=== PATIENT | male | born 1935 | race Caucasian/White ===

== ENCOUNTER 2020-02-08 14:56 | Emergency (ER) | payer MEDICARE, SELFPAY ==
[2020-02-08 15:08] VITALS: BP 114/68; PULSE 88; RESP 16; TEMP 36.8; O2SAT 97
--- NOTE | 2020-02-08 15:12 | ED.WOUNDLAC ---
HPI - Wound/Laceration General Chief Complaint: Wound/Laceration Stated Complaint: Groin bleeding Time Seen by Provider: 02/08/20 15:40 Source: patient and RN notes reviewed Mode of arrival: ambulatory Limitations: no limitations History of Present Illness HPI narrative: 84-year-old male presents with concern for a scab on his scrotum that began to bleed today. He reports he was unable to get it to stop bleeding. He denies any syncope, lightheadedness. Denies any similar occurrence in the past. Reports he takes aspirin daily. He denies any scrotal pain, swelling, penile discharge. Reports he was able to stop the bleeding prior to arrival. Location: genitals Related Data Home Medications Medication Instructions Recorded Confirmed carvedilol 02/08/20 dutasteride mg PO 02/08/20 felodipine mg PO 02/08/20 gabapentin 02/08/20 lisinopril-hydrochlorothiazide tablet 02/08/20 pravastatin 02/08/20 tamsulosin mg PO 02/08/20 Allergies Allergy/AdvReac Type Severity Reaction Status Date / Time No Known Allergies Allergy Verified 02/08/20 14:59 Review of Systems Review of Systems: Narrative: CONSTITUTIONAL: Denies malaise, chills, sweats, or fever. CARDIOVASCULAR: Denies chest pain, palpitations, or edema. RESPIRATORY: Denies dyspnea. GENITOURINARY: Denies scrotal pain, swelling, redness dysuria or hematuria. SKIN: Reports scab on scrotum that bled NEUROLOGIC: Denies numbness, weakness, or headache. All systems reviewed & are unremarkable except as noted in HPI and below PMFSH Comments At time of signature, agree with nursing past medical, surgical, social and family history. There is no relevant family history pertinent to the presenting complaint Exam Narrative: Exam Narrative: GENERAL: Well-appearing, well-nourished, and in no acute distress. HEAD: Normocephalic, atraumatic. EYES: PERRLA, conjunctivae clear ENT: Mucous membranes moist. NECK: Supple. CHEST: No respiratory distress. Speaks in full sentences. HEART: Regular rate and rhythm. SKIN: Warm, dry, no rash. Pinpoint opening on scrotum. NEURO: Alert and oriented x3. PSYCH: Normal mood and affect Course Course Emergency Course: Dried blood cleaned from scrotum which was not bleeding. Bleeding resumed to the pinpoint opening on the scrotum. Silver nitrate applied, hemostasis achieved. Patient is aware of diagnosis, understands and agrees to treatment plan. Anticipatory guidance given. Patient agrees to follow-up as directed and is aware of reasons to seek care at the emergency department. Portions of this record may have been created with voice recognition software Vital Signs Vital signs: Vital Signs Temperature 98.3 F 02/08/20 15:08 Pulse Rate 88 02/08/20 15:08 Respiratory Rate 16 02/08/20 15:08 Blood Pressure 114/68 02/08/20 15:08 Pulse Oximetry 97 02/08/20 15:08 Temperature 98.3 F 02/08/20 15:08 Pulse Rate 88 02/08/20 15:08 Respiratory Rate 16 02/08/20 15:08 Blood Pressure 114/68 02/08/20 15:08 Pulse Oximetry 97 02/08/20 15:08 Reviewed. MDM - Wound/Laceration MDM Narrative Medical decision making narrative: Exam findings show no acute concerns or changes; patient is non-toxic appearing and is in no distress. Patient is appropriate for outpatient treatment and follow-up. Differential Diagnosis Differential diagnosis: Likely laceration, abrasion and avulsion of skin Critical Care Time Critical Care Time Critical Care Time: No Discharge Plan Discharge Clinical Impression: Bleeding Patient Disposition: Home, Self-Care Condition: Stable Instructions: Potassium Nitrate/Silver Nitrate (On the skin) Additional Instructions: Please avoid touching, picking at the site on your scrotum that was bleeding. You may shower, let soap and water run over it. If you experience bleeding again, apply firm pressure for at least 15 minutes. Please see your primary care provider or return if you
== END 2020-02-08 16:00 | disposition home or self-care (01) ==
PROVIDERS: Emergency Provider Nurse Practitioner; PCP Internal Medicine
DX: S31.30XA Unspecified open wound of scrotum and testes, initial encounter (principal); X58.XXXA Exposure to other specified factors, initial encounter; E78.00 Pure hypercholesterolemia, unspecified; I10 Essential (primary) hypertension; N40.0 Benign prostatic hyperplasia without lower urinary tract symptoms
CPT/HCPCS: 99202; G0463

== ENCOUNTER → 2020-06-21 10:04 | Outpatient (CLI) | payer MEDICARE, SELFPAY ==
--- NOTE | ~2020-06-21 | US_ITS ---
US scrotum doppler INDICATION: Left testicular mass and swelling TECHNIQUE: Testicular sonogram utilizing grayscale and color Doppler FINDINGS: The testes are normal in size and appearance. No focal lesions are seen. The right testes measures 4.6 x 2.3 x 3.2 cm centimeters, and the left testis measures 3.6 x 2.7 x 2.9 cm cm. There is normal vascular flow to both testes. The right and left epididymides appear normal. There is a right varicocele. There is a large left hydrocele. IMPRESSION: 1. Large left hydrocele. 2: Right varicocele. Reviewed, dictated and finalized at location A.
== END ==
PROVIDERS: PCP Internal Medicine; Visit Provider Internal Medicine
DX: N43.3 Hydrocele, unspecified (principal); I86.1 Scrotal varices
CPT/HCPCS: 76870; 93976

== ENCOUNTER 2021-02-07 00:03 | Emergency (ER) | payer MEDICARE, SELFPAY ==
--- NOTE | ~2021-02-07 | CT_ITS ---
EXAMINATION: CT brain wo con DATE: 02/07/2021 01:28 INDICATION: Tremors TECHNIQUE: Computed tomography (CT) of the head was performed without intravenous contrast. Sagittal and coronal reconstructions were performed. The mA was adjusted according to patient size. Iterative reconstruction technique was employed. The dose-length product was 605.33 mGy-cm. COMPARISON: None FINDINGS: No acute intracranial hemorrhage, acute infarction or abnormal extra axial fluid collection. There is mild scattered white matter hypoattenuation consistent with chronic small vessel ischemic disease. S ymmetric prominence of the sulci consistent with mild age-appropriate diffuse cerebral volume loss. V entricles are normal and symmetric. No mass/mass effect. Changes of bilateral intraocular lens replac ement. The orbits and mastoid air cells are normal. Mild mucosal thickening the bilateral maxillary s inuses. Intracranial calcified cerebral atherosclerosis is noted. IMPRESSION: 1. No acute intracranial process. 2. Age-related changes including mild diffuse volume loss and mild scattered white matter hypoattenua tion consistent with chronic small vessel ischemic disease. Reviewed, dictated and finalized at location A. IMPRESSION: 1. No acute intracranial process. 2. Age-related changes including mild diffuse volume loss and mild scattered wh ite matter hypoattenuation consistent with chronic small vessel ischemic diseas e.
[2021-02-07 00:06] VITALS: BP 152/53; PULSE 95; RESP 18; TEMP 37.5; O2SAT 98
--- NOTE | 2021-02-07 00:51 | PC.NURSE ---
Pt presents to ED with complaints of sudden onset of tremors this evening at unknown time. Per daughter who is present at bedside, pt had his second covid injection today. Pt presents to with tremors to bilateral upper extremities. Pt denies nvd, chest pain and sob. Pt noted to be alert and oriented x4. Call button and personal items within reach. Pt advised to press call button for assistance.
--- NOTE | 2021-02-07 00:54 | ED.GENADULT ---
HPI - General Adult General Chief complaint: Unspecified Stated complaint: Shaking Time Seen by Provider: 02/07/21 00:47 Source: RN notes reviewed History of Present Illness HPI narrative: Patient presents to emergency department from home for tremors. Patient states this evening evening while he was watching TV began to notice tremors in his bilateral upper extremities he states his arms were shaking and he felt like he cannot control them and stopped him from shaking he states he also felt this mildly in his bilateral lower legs. He states that he did receive a second Covid vaccine today he denies any fevers or chills chest pain shortness of breath abdominal pain nausea or vomiting. He denies any numbness or tingling in the extremities or unilateral weakness Related Data Home Medications Medication Instructions Recorded Confirmed carvedilol 02/08/20 dutasteride mg PO 02/08/20 felodipine mg PO 02/08/20 gabapentin 02/08/20 lisinopril-hydrochlorothiazide tablet 02/08/20 pravastatin 02/08/20 tamsulosin mg PO 02/08/20 Allergies Allergy/AdvReac Type Severity Reaction Status Date / Time Penicillins Allergy Unknown Verified 02/07/21 00:09 Review of Systems Review of Systems: Narrative: Gen.: Denies fevers or chills ENT: Denies congestion Respiratory: Denies shortness of breath or cough CV: Denies chest pain or palpitations GI: Denies abdominal pain nausea, emesis or diarrhea Musculoskeletal: Denies back pain or muscle pain Neuro: See HPI Skin: Denies rash Except as documented, all other systems reviewed and negative [facility] Past Medical History Medical History (Updated 02/07/21 @ 02:52 by Milan Iraheta DO) Patient denies significant medical history Social History Social History (Updated 02/07/21 @ 00:55 by Milan Iraheta DO) Smoking status: Never smoker Exam Narrative: Exam Narrative: APPEARANCE: No acute distress, nontoxic, resting in bed EYES: EOMI, PERRL HEENT: Normocephalic, atraumatic, OMM RESPIRATORY: No respiratory distress Clear to auscultation bilaterally with no rhonchi wheezing or rales. CARDIOVASCULAR: Regular rate and rhythm without murmurs rubs or gallops. ABDOMINAL: Soft, nontender, nondistended, no rebound or guarding MUSCULOSKELETAl: Moves all extremities. No clubbing, cyanosis or edema. NEURO: Awake and alert4 , speech normal, no facial droop, muscle strength 5 out of 5 bilateral upper and lower extremities, tremors in the bilateral upper extremities SKIN:: Warm, dry. No rashes lesions or abrasions PSYCHIATRIC: Normal affect/mood, Course Course Emergency Course: Patient symptoms are improved following Tylenol Discussed with patient results of workup and diagnosis. Discussed need for follow-up with primary care, proper use of medication, and reasons to return to the emergency department. Patient understands and agrees to current treatment plan Vital Signs Vital signs: Vital Signs Temperature 99.5 F 02/07/21 00:06 Pulse Rate 95 02/07/21 00:06 Respiratory Rate 18 02/07/21 00:06 Blood Pressure 152/53 H 02/07/21 00:06 Pulse Oximetry 98 02/07/21 00:06 Temperature 100.2 F H 02/07/21 02:15 Pulse Rate 95 02/07/21 00:06 Respiratory Rate 18 02/07/21 00:06 Blood Pressure 152/53 H 02/07/21 00:06 Pulse Oximetry 98 02/07/21 00:06 Medical Decision Making [facility] Narrative Medical decision making narrative: Patient with tremors in bilateral arms and legs earlier second Covid shot today suspect that patient is likely getting chills myalgias from Covid shot Doe Tylenol lab work is within normal limits this 30 feel patient is stable for discharge CT scan head shows no acute process discussed with family likely secondary to shot however symptoms continue need to follow-up with PCP for further work-up Vital Signs Vital Signs: Vital Signs Temperature 99.5 F 02/07/21 00:06 Pulse Rate 95 02/07/21 00:06 Respiratory Rate 18 02/07/21 00:06 Blood
--- NOTE | 2021-02-07 01:03 | ECG_ITS ---
Measurements Intervals [place] Rate: 86 P: 16 NM: 234 QRS: -23 QRSD: 152 T: 105 QT: 393 QTc: 472 Interpretive Statements SINUS RHYTHM WITH FIRST DEGREE AV BLOCK LEFT BUNDLE BRANCH BLOCK BASELINE ARTIFACT- I, II, III, AVR ABNORMAL ECG Electronically Signed On 02-07-2021 7:39:08 CDT by Kamran Collado D.O.
[2021-02-07 01:24] LABS: Basophils Percent Auto 0.2 % (0.2-1.2); Eosinophils Absolute Auto 0.1 K/mm3 (0-0.3); Eosinophils Percent Auto 1.4 % (0-4.4); Hemoglobin 13.2 g/dL (14.0-18.0); Immature Granulocyte Absolute 0.01 K/mm3 (0.00-0.031); Immature Granulocyte Percent A 0.2 % (0-0.5); Lymphocytes Absolute Auto 0.67 K/mm3 (0.9-3.2); Lymphocytes Percent Auto 10.3 % (18.3-44.2); Mean Corpuscular Hemoglobin 30.6 pg (26-34); Mean Corpuscular Volume 92.6 fl (80-100); Mean Platelet Volume 9.5 fl (7.4-10.4); Monocytes Absolute Auto 0.4 K/mm3 (0.1-0.6); Monocytes Percent Auto 5.4 % (2.6-8.5); Neutrophils Absolute Auto 5.4 K/mm3 (1.3-6.7); Neutrophils Percent Auto 82.5 % (45.5-73.1); Platelet Count Result 135 k/mm3 (150-375); Red Blood Count 4.32 M/mm3 (4.6-6.20); Red Cell Distribution Width 15.8 % (11.5-14.5); White Blood Count 6.5 K/mm3 (4.5-10.0)
[2021-02-07] MEDS: ACETAMINOPHEN 500 MG TABLET 1000 MG PO (01:28)
[2021-02-07 01:38] LABS: Alanine Aminotransferase 17 U/L (4-50); Albumin Level 4.1 g/dL (3.5-5.1); Alkaline Phosphatase 69 U/L (38-126); Anion Gap 6 mmol/L (8-16); Aspartate Amino Transferase 22 U/L (17-59); Bilirubin,Total 0.5 mg/dL (0.2-1.3); Blood Urea Nitrogen 22 mg/dL (9-20); Calcium 9.1 mg/dL (8.4-10.2); Carbon Dioxide 29 mmol/L (22-30); Chloride 101 mmol/L (98-107); Estimated CRCL calculation 61 ml/min; Estimated Glomerular Filt Rate > 60; Glucose 113 mg/dL (75-110); Potassium 3.7 mmol/L (3.4-5.0); Sodium 136 mmol/L (137-145)
[2021-02-07 02:15] VITALS: TEMP 37.9
[2021-02-07 04:04] VITALS: BP 129/66; PULSE 87; RESP 24; TEMP 37.2; O2SAT 96
[2021-02-07 04:05] VITALS: BP 129/66; PULSE 87; RESP 24; TEMP 37.2; O2SAT 96
[2021-02-07 04:21] VITALS: BP 129/66; PULSE 87; RESP 24; TEMP 37.2; O2SAT 96
== END 2021-02-07 04:25 | disposition home or self-care (01) ==
PROVIDERS: Emergency Provider Emergency Medicine; PCP Internal Medicine
DX: G25.1 Drug-induced tremor (principal); T50.B95A Adverse effect of other viral vaccines, initial encounter; I44.0 Atrioventricular block, first degree; I44.7 Left bundle-branch block, unspecified
CPT/HCPCS: 36415; 70450; 80053; 85025; 93005; 99284; A9270

== ENCOUNTER → 2021-08-18 13:46 | Outpatient (CLI) | payer MEDICARE, SELFPAY ==
--- NOTE | ~2021-08-18 | US_ITS ---
EXAMINATION: US pelvic limited INDICATION: Benign prostatic hyperplasia without lower urinary tract symptoms TECHNIQUE: Pre and post void ultrasound images of the urinary bladder are obtained. COMPARISON: None available FINDINGS: No bladder wall thickening is identified. Prevoid bladder volume is 97.1 cc. Postvoid bladd er volume is 31.3 cc. IMPRESSION: 1. Pre and post void bladder volumes as above. Reviewed, dictated and finalized at location A.
== END ==
PROVIDERS: PCP Internal Medicine; Visit Provider Internal Medicine
DX: N40.0 Benign prostatic hyperplasia without lower urinary tract symptoms (principal)
CPT/HCPCS: 76857

== ENCOUNTER 2021-09-20 11:39 | Emergency (ER) | payer MEDICARE, SELFPAY ==
[2021-09-20 11:54] VITALS: BP 140/71; PULSE 72; RESP 18; TEMP 36.3; O2SAT 100
--- NOTE | 2021-09-20 12:02 | ED.SKABFB ---
HPI - Skin/Abscess/Foreign Bdy General Chief complaint: Skin/Abscess/Foreign Body Stated complaint: Rash,Swollen Feet Time Seen by Provider: 09/20/21 11:58 Source: patient, family (Daughter) and RN notes reviewed Mode of arrival: ambulatory Limitations: no limitations History of Present Illness HPI narrative: 86-year-old male with a significant history of some type of dermatitis, congestive heart failure, hypertension, GERD and high cholesterol presents to the [facility] with complaints of increased itchiness to a chronic rash he has had for several months. Patient states that the rash started sometime in the summer, was seen at Dr. [facility]on dermatology clinic July, was given a steroid shot and prescribed a cream. Went back 2 weeks after given another steroid shot and prescribed a different cream. Daughter states she believes the steroid shot helped with the itching, reports that they did a skin scraping and it came back inconclusive. Patient describes the rash is very itchy. Also is concerned that his bilateral lower legs are still swollen, have been swollen for 2 to 3 months. States he does have a history of congestive heart failure and does take his medication daily. Patient is denying fevers, chest pain or shortness of breath. No abdominal pain, nausea, vomiting. Patient reports that he is most concerned and would like the itching to stop. Does not have another appointment with primary or with dermatology until October. States he cannot wait to stop the itching. Daughter is requesting a shot of steroids to try to help. Patient is not diabetic. MD complaint: rash Related Data Home Medications Medication Instructions Recorded Confirmed carvedilol 02/08/20 dutasteride mg PO 02/08/20 felodipine mg PO 02/08/20 gabapentin 02/08/20 lisinopril-hydrochlorothiazide tablet 02/08/20 pravastatin 02/08/20 tamsulosin mg PO 02/08/20 amlodipine 09/20/21 aspirin 81 mg PO DAILY 09/20/21 09/20/21 finasteride mg 09/20/21 Allergies Allergy/AdvReac Type Severity Reaction Status Date / Time Penicillins Allergy Unknown Verified 09/20/21 11:51 Review of Systems Review of Systems: All systems reviewed & are unremarkable except as noted in HPI and below Constitutional: Constitutional: Reports no additional constitutional complaints, Denies chills and Denies fever(s) Eyes: Eyes: Reports no additional eye complaints ENT: Reports system reviewed and no additional complaints, except as documented Cardiovascular: Cardiovascular: Reports no additional cardiovascular complaints and Denies chest pain Respiratory: Respiratory: Reports no additional respiratory complaints, Denies cough, Denies dyspnea and Denies wheezing Gastrointestinal: Gastrointestinal: Reports no additional gastrointestinal complaints, Denies abdominal pain, Denies nausea and Denies vomiting Genitourinary: Genitourinary: Reports no additional male genitourinary complaints Musculoskeletal: Musculoskeletal: Reports no additional musculoskeletal complaints Integumentary/Breasts: Skin/Breast: Reports as per HPI and Reports rash Neurologic: Reports system reviewed and no additional complaints, except as documented Psychiatric: Psychiatric: Reports no additional psychiatric complaints Allergic/Immunologic: Allergic/Immunologic: Reports no additional allergic/immunologic complaints [facility] Past Medical History Medical History (Updated 09/20/21 @ 18:31 by Marianela Minor) Congestive heart failure H/O gastroesophageal reflux (GERD) High cholesterol Hypertension Social History Social History Smoking status: Never smoker Comments At the time of my signature, I reviewed and agree with the nursing past medical, surgical, social, and family history. There is no relevant family history pertinent to the patient complaint. Exam Const: General: healthy appearing, no acute distress and alert Nutritional A
== END 2021-09-20 12:40 | disposition home or self-care (01) ==
PROVIDERS: Emergency Provider Nurse Practitioner
DX: L50.9 Urticaria, unspecified (principal); L30.9 Dermatitis, unspecified; I11.0 Hypertensive heart disease with heart failure; I50.9 Heart failure, unspecified; K21.9 Gastro-esophageal reflux disease without esophagitis; E78.00 Pure hypercholesterolemia, unspecified
CPT/HCPCS: 96372; 99213; G0463; J1100

== ENCOUNTER 2022-01-10 17:15 | Emergency (ER) | payer MEDICARE, SELFPAY ==
--- NOTE | 2022-01-10 17:17 | ED.SKABFB ---
HPI - Skin/Abscess/Foreign Bdy General Chief complaint: Skin/Abscess/Foreign Body Stated complaint: Rash Time Seen by Provider: 01/10/22 17:17 Source: patient and RN notes reviewed History of Present Illness HPI narrative: Patient is an 86-year-old male who presents the urgent care with his daughter with complaints of a rash to bilateral lower legs, bilateral hips and upper back. Patient states is been off and on for approximately 1 year and exacerbated just over the last couple weeks. 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 Daughter states that he needs a steroid shot . No other acute complaints. No acute distress noted. Patient aware of the plan of care. Some parts of this dictation were generated by voice recognition software and may contain typographical and/or grammatical inaccuracies. Related Data Home Medications Medication Instructions Recorded Confirmed carvedilol 3.125 mg PO DAILY 02/08/20 01/10/22 dutasteride 0.5 mg PO DAILY 02/08/20 01/10/22 felodipine 5 mg PO DAILY 02/08/20 01/10/22 gabapentin 100 mg PO DAILY 02/08/20 01/10/22 lisinopril-hydrochlorothiazide 1 tablet PO DAILY 02/08/20 01/10/22 pravastatin 10 mg PO DAILY 02/08/20 01/10/22 tamsulosin 0.4 mg PO DAILY 02/08/20 01/10/22 amlodipine 2.5 mg PO DAILY 09/20/21 01/10/22 aspirin 81 mg PO DAILY 09/20/21 01/10/22 finasteride 5 mg PO DAILY 09/20/21 01/10/22 duloxetine 30 mg PO DAILY 01/10/22 01/10/22 furosemide 20 mg PO DAILY 01/10/22 01/10/22 Allergies Allergy/AdvReac Type Severity Reaction Status Date / Time Penicillins Allergy Unknown Verified 01/10/22 17:25 Review of Systems Review of Systems: CONSTITUTIONAL: Denies fever, chills, or sweats. EYES: Denies visual changes, redness, or discharge. ENT: Denies rhinorrhea, congestion, sore throat, or otalgia. CARDIOVASCULAR: Denies chest pain, palpitations, or edema. RESPIRATORY: Denies cough or dyspnea. GASTROINTESTINAL: Denies abdominal pain, nausea, vomiting, or diarrhea. GENITOURINARY: Denies dysuria or hematuria. SKIN: Reports of itching plain rash to bilateral lower legs, bilateral hips, and upper back MUSCULOSKELETAL: Denies back pain, joint pain, or myalgia. NEUROLOGIC: Denies headache, numbness, or weakness. All other systems reviewed are negative, except as documented in HPI. [facility] Past Medical History Medical History (Updated 01/10/22 @ 17:51 by TOM Cespedes) Congestive heart failure H/O gastroesophageal reflux (GERD) High cholesterol Hypertension Social History Social History Smoking status: Never smoker Comments At the time of my signature, I reviewed and agree with the nursing past medical, surgical, social, and family history. There is no relevant family history pertinent to the patient complaint. Exam Narrative: GENERAL: This is a well-nourished, well-developed patient, in no apparent distress. HEAD: normocephalic, atraumatic. EYES: PERRL. Sclera clear/white. Vision is grossly intact. EARS: External ears normal NOSE: External nose normal with no obvious nasal discharge, nares without redness, no rhinorrhea. THROAT: Mucous membranes moist, posterior pharynx clear. NECK: Neck supple CARDIOVASCULAR: Regular rate and rhythm RESPIRATORY: Clear to auscultation. Breath sounds equal bilaterally. No wheezes, rales, or rhonchi. SKIN: Dry erythemic pruritic dermatitis noted bilateral lower extremities, bilateral hips, and upper back consistent with either psoriasis or eczema NEURO: awake, alert, and oriented to person, place and time. There were no obvious focal neurologic abnormalities. EXTREMITIES: No clubbing, cyanosis, or edema. Course Course Level of Care: Express Care Visit Vital Signs Vital signs: Vital Signs Temperature 97.6 F 01/10/22 17: Pulse Rate 87 01/10/22 17:26 Respiratory Rate 18 01/10/22 17:26 Blood Pressure 115/62
[2022-01-10 17:26] VITALS: BP 115/62; PULSE 87; RESP 18; TEMP 36.4; O2SAT 98
[2022-01-10 17:28] VITALS: BP 115/62; PULSE 87; RESP 18; TEMP 36.4; O2SAT 98
== END 2022-01-10 17:56 | disposition home or self-care (01) ==
PROVIDERS: Emergency Provider Nurse Practitioner Family; PCP Internal Medicine
DX: L30.9 Dermatitis, unspecified (principal); K21.9 Gastro-esophageal reflux disease without esophagitis; E78.00 Pure hypercholesterolemia, unspecified; I11.0 Hypertensive heart disease with heart failure; I50.9 Heart failure, unspecified
CPT/HCPCS: 99213; G0463

== ENCOUNTER → 2022-12-20 12:19 | Outpatient (CLI) | payer MEDICARE, SELFPAY ==
--- NOTE | ~2022-12-20 | CT_ITS ---
EXAMINATION: CT chest abdomen pelvis wo con DATE: 12/20/2022 12:50 INDICATION: Unintentional weight loss. TECHNIQUE: Computed tomography (CT) of the chest, abdomen, and pelvis was performed without intraveno us contrast. Automated exposure control and iterative reconstruction technique were employed. The dos e-length product was 914.46 mGy-cm. COMPARISON: None FINDINGS: CHEST CT: There is mild atelectasis bilaterally. There is a 5 mm nodule in lingula. There is a 3 mm nodule in r ight upper lobe. There is a 5 mm nodule at minor fissure. These findings are likely benign. No pleura l effusion. The heart size is normal. There are coronary artery calcifications. No pericardial effusi on. 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 There is a large right glenohumeral felicia int effusion with loose bodies. There is moderate thoracic spondylosis. ABDOMEN/PELVIS CT: The liver, gallbladder, spleen, pancreas, and adrenal glands are normal. There are cysts in the kidne ys including peripelvic cysts measuring up to 3.3 cm on the left. There is a 5 mm parenchymal calcifi cation in right kidney with focal parenchymal volume loss. There is an umbilical hernia containing no nobstructed small bowel. There is diverticulosis of the colon without evidence of diverticulitis. The appendix is normal. There is a small focus of fat necrosis adjacent to ascending colon. There are no pathologically enlarged lymph nodes. There is no free intraperitoneal fluid. There is severe lumbar spondylosis. IMPRESSION: 1. Umbilical hernia containing nonobstructed small bowel. Reviewed, dictated and finalized at location A. [facility]TER
== END ==
PROVIDERS: PCP Internal Medicine; Visit Provider Internal Medicine
DX: R63.4 Abnormal weight loss (principal); K42.9 Umbilical hernia without obstruction or gangrene
CPT/HCPCS: 71250; 74176

== ENCOUNTER 2023-09-14 18:34 | Emergency (ER) | payer MEDICARE, SELFPAY ==
--- NOTE | 2023-09-14 18:37 | ED.EYEPROB ---
HPI - Eye Problem General Chief complaint: Eye Problems Stated complaint: Left Eye Irritation Time Seen by Provider: 09/14/23 18:37 Source: patient Mode of arrival: ambulatory Limitations: no limitations History of Present Illness HPI Narrative: Patient 88-year-old male that presents with left eye irritation and discharge. Reports symptoms started a week ago and was seen at PCP and was given eyedrops. Patient has been using them sporadically due to not understanding it was antibiotic drops for a bacterial infection. Reports his eye has discharge and feels like there is sand in it along with being itchy. Denies any vision changes Related Data Home Medications Medication Instructions Recorded Confirmed carvedilol 3.125 mg tablet 3.125 mg PO DAILY 02/08/20 09/14/23 dutasteride 0.5 mg capsule 0.5 mg PO DAILY 02/08/20 09/14/23 felodipine 5 mg tablet,extended 5 mg PO DAILY 02/08/20 09/14/23 release 24 hr gabapentin 100 mg capsule 100 mg PO DAILY 02/08/20 09/14/23 lisinopril 10 1 tablet PO DAILY 02/08/20 09/14/23 mg-hydrochlorothiazide 12.5 mg tablet pravastatin 10 mg tablet 10 mg PO DAILY 02/08/20 09/14/23 tamsulosin 0.4 mg capsule 0.4 mg PO DAILY 02/08/20 09/14/23 amlodipine 2.5 mg tablet 2.5 mg PO DAILY 09/20/21 09/14/23 aspirin 81 mg tablet 81 mg PO DAILY 09/20/21 09/14/23 finasteride 5 mg tablet 5 mg PO DAILY 09/20/21 09/14/23 duloxetine 30 mg capsule,delayed 30 mg PO DAILY 01/10/22 09/14/23 release furosemide 20 mg tablet 20 mg PO DAILY 01/10/22 09/14/23 ergocalciferol (vitamin D2) 1,250 1,250 mcg PO MONTHLY 09/14/23 09/14/23 mcg (50,000 unit) capsule Allergies Allergy/AdvReac Type Severity Reaction Status Date / Time Penicillins Allergy Unknown Verified 09/14/23 18:42 Review of Systems Review of Systems: All systems reviewed & are unremarkable except as noted in HPI and below Constitutional: Constitutional: Denies body ache(s), Denies fever(s), Denies headache(s), Denies malaise and Denies weakness Eyes: Eyes: Denies blurry vision, Reports eye discharge, Reports irritation, Reports itchy eyes, Denies loss of vision and Reports eye pain ENT: Denies otalgia, Denies headache(s), Denies nasal discharge, Denies sinus pain and Denies sore throat Cardiovascular: Cardiovascular: Denies chest pain, Denies irregular heart rhythm and Denies dyspnea Respiratory: Respiratory: Denies dyspnea Gastrointestinal: Gastrointestinal: Denies abdominal pain, Denies diarrhea, Denies nausea and Denies vomiting Musculoskeletal: Musculoskeletal: Denies back pain, Denies myalgias and Denies arthralgias Integumentary/Breasts: Skin/Breast: Denies pruritus and Denies rash Neurologic: Denies headache(s), Denies loss of vision and Denies weakness Psychiatric: Psychiatric: Reports no additional psychiatric complaints Allergic/Immunologic: Allergic/Immunologic: Reports itchy eyes PMFSH Past Medical History Medical History Congestive heart failure H/O gastroesophageal reflux (GERD) High cholesterol Hypertension Social History Social History Smoking status: Never smoker Comments At time of signature, agree with nursing past medical, surgical, social and family history. There is no relevant family history pertinent to the presenting complaint. Exam Const: General: cooperative, healthy appearing, comfortable, no acute distress and well nourished Nutritional Appearance: well nourished Orientation/consciousness: patient oriented x3 Limitations: no limitations HENMT: Head: normal to inspection, normocephalic and atraumatic Ears: external ears normal Face/Nose/Sinus: Normal external nose present, normal facial exam and face symmetric Face and sinus: normal facial exam and face symmetric Mouth: Yes lip normal Eyes: General: appearance normal, both eyes and all related structures Visual Fleming: normal visual
[2023-09-14 18:44] VITALS: BP 119/79; PULSE 70; RESP 16; TEMP 37.1; O2SAT 98
[2023-09-14 18:48] VITALS: BP 119/79; PULSE 70; RESP 16; TEMP 37.1; O2SAT 98
== END 2023-09-14 19:14 | disposition home or self-care (01) ==
PROVIDERS: Emergency Provider Nurse Practitioner Family; PCP Internal Medicine
DX: H10.9 Unspecified conjunctivitis (principal); I11.0 Hypertensive heart disease with heart failure; I50.9 Heart failure, unspecified; K21.9 Gastro-esophageal reflux disease without esophagitis; E78.00 Pure hypercholesterolemia, unspecified; Z79.82 Long term (current) use of aspirin
CPT/HCPCS: 99213; G0463

== ENCOUNTER 2023-09-17 12:16 | Emergency (ER) | payer MEDICARE, SELFPAY ==
[2023-09-17] VITALS (10 sets, daily range): BP systolic 97–120; BP diastolic 51–72; PULSE 60–78; RESP 14–19; TEMP 36.5; O2SAT 97–100
--- NOTE | ~2023-09-17 | CT_ITS ---
EXAMINATION: CT brain wo con DATE: 09/17/2023 17:10 INDICATION: confusion, delusions . TECHNIQUE: Computed tomography (CT) of the head was performed without intravenous contrast. The mA wa s adjusted according to patient size. Iterative reconstruction technique was employed. The dose-lengt h product was 529.67 mGy-cm. COMPARISON: 02/07/2021. FINDINGS: No acute intracranial hemorrhage or extra-axial fluid collection. No hydrocephalus, mass, or herniation. No acute ischemic infarct. Unremarkable dural venous sinus attenuation. No acute osseous abnormality. The aerated spaces are clear. Mild atrophy and chronic white matter change. Atherosclerotic intracranial calcification. Bilateral l ens replacements. IMPRESSION: No acute intracranial process. Reviewed, dictated and finalized at location K.
--- NOTE | ~2023-09-17 | XR_ITS ---
EXAMINATION: XR chest 2V Exam Date/Time: 09/17/2023 17:10 CDT HISTORY: AMS, crackles r lung; HTN, CHF, non smoker Comparison: CT cap 12/20/2022. RESULT: Lines, tubes, and devices: None. Lungs and pleura: Low volumes with crowding. Senescent change. Stable right hemidiaphragm elevation. Cardiomediastinal silhouette: Stable. Other: No acute osseous or upper abdominal finding. IMPRESSION: No acute cardiopulmonary process. Reviewed, dictated and finalized at location K.
--- NOTE | 2023-09-17 12:25 | ECG_ITS ---
Measurements Intervals [place] Rate: 70 P: 27 [place]: 233 QRS: -53 QRSD: 161 T: 89 QT: 427 QTc: 462 Interpretive Statements SINUS RHYTHM WITH FIRST DEGREE AV BLOCK MARKED LEFT AXIS DEVIATION [QRS AXIS < -30] LEFT BUNDLE BRANCH BLOCK [120+ ms QRS DURATION, 80+ ms Q/S IN V1/V2, 85+ ms R IN I/aVL/V5/V6] ABNORMAL ECG COMPARED TO ECG 02/07/2021 01:15:35 NO SIGNIFICANT CHANGE Electronically Signed On 09-17-2023 14:45:46 CDT by Kb Bonner M.D.
[2023-09-17 12:52] LABS: Basophils Percent Auto 0.3 % (0.2-1.2); Eosinophils Absolute Auto 0.1 K/mm3 (0-0.3); Eosinophils Percent Auto 2.1 % (0-4.4); Hematocrit 41.2 % (42.0-52.0); Hemoglobin 12.9 g/dL (14.0-18.0); Immature Granulocyte Absolute 0.01 K/mm3 (0.00-0.031); Immature Granulocyte Percent A 0.2 % (0-0.5); Lymphocytes Absolute Auto 1.51 K/mm3 (0.9-3.2); Lymphocytes Percent Auto 24.6 % (18.3-44.2); Mean Corpuscular HGB Conc 31.3 g/dl (32-36); Mean Corpuscular Hemoglobin 29.7 pg (26-34); Mean Corpuscular Volume 94.9 fl (80-100); Mean Platelet Volume 9.9 fl (7.4-10.4); Monocytes Absolute Auto 0.6 K/mm3 (0.1-0.6); Monocytes Percent Auto 9.6 % (2.6-8.5); Neutrophils Absolute Auto 3.9 K/mm3 (1.3-6.7); Neutrophils Percent Auto 63.2 % (45.5-73.1); Platelet Count Result 164 k/mm3 (150-375); Red Blood Count 4.34 M/mm3 (4.6-6.20); Red Cell Distribution Width 14.7 % (11.5-14.5); White Blood Count 6.2 K/mm3 (4.5-10.0)
[2023-09-17 13:01] LABS: Alanine Aminotransferase 14 U/L (6-50); Albumin Level 3.8 g/dL (3.5-5.1); Alkaline Phosphatase 72 U/L (38-126); Anion Gap 5 mmol/L (8-16); Aspartate Amino Transferase 19 U/L (17-59); Bilirubin,Total 0.5 mg/dL (0.2-1.3); Blood Urea Nitrogen 34 mg/dL (9-20); Calcium 9.2 mg/dL (8.4-10.2); Carbon Dioxide 30 mmol/L (22-30); Chloride 101 mmol/L (98-107); Estimated Glomerular Filt Rate 57; Glucose 131 mg/dL (65-110); Potassium 3.3 mmol/L (3.4-5.0); Sodium 136 mmol/L (137-145)
[2023-09-17 13:03] LABS: Prothrombin Time 14.1 Seconds (11.1-14.7)
--- NOTE | 2023-09-17 16:30 | ED.WEAKNESS ---
HPI - Weakness General Chief complaint: Weakness <Angela Aviles PA-C - Last Filed: 09/17/23 18:17> Stated complaint: confusion/pos urinary tract infection <Angela Aviles PA-C - Last Filed: 09/17/23 18:17> Time Seen by Provider: 09/17/23 15:25 <Angela Aviles PA-C - Last Filed: 09/17/23 18:17> History of Present Illness HPI Narrative: 88-year-old male with a history of CHF, GERD, hyperlipidemia, hypertension reports with his daughter for confusion for the past 3 weeks. Patient's daughter states the patient has been acting more confused and well on the phone couple times in the past week, he is said everyone is in bed when she asked what he is doing. He lives at home alone and is not sure if he is referring to when he says everyone . Patient also states he has felt more confused. They called his PCP who advised him to come to the ED for further evaluation and concern for urinary tract infection. Patient and daughter also state that the patient has been more anxious recently. He recently had his duloxetine dose increased by his PCP approximately 1 week ago. Denies other medication changes. Patient denies head injury or trauma, vision changes, focal numbness or weakness, chest pain or shortness of breath, abdominal pain, nausea, vomiting, diarrhea, rashes, headache, dysuria or hematuria. He does report a cough but is unsure to tell me when it started. He denies known fever, body aches or chills. He does report decreased p.o. intake due to decreased appetite. <Angela Aviles PA-C - Last Filed: 09/17/23 18:17> Related Data Home medications: Home Medications Medication Instructions Recorded Confirmed carvedilol 3.125 mg tablet 3.125 mg PO DAILY 02/08/20 09/14/23 dutasteride 0.5 mg capsule 0.5 mg PO DAILY 02/08/20 09/14/23 felodipine 5 mg tablet,extended 5 mg PO DAILY 02/08/20 09/14/23 release 24 hr gabapentin 100 mg capsule 100 mg PO DAILY 02/08/20 09/14/23 lisinopril 10 1 tablet PO DAILY 02/08/20 09/14/23 mg-hydrochlorothiazide 12.5 mg tablet pravastatin 10 mg tablet 10 mg PO DAILY 02/08/20 09/14/23 tamsulosin 0.4 mg capsule 0.4 mg PO DAILY 02/08/20 09/14/23 amlodipine 2.5 mg tablet 2.5 mg PO DAILY 09/20/21 09/14/23 aspirin 81 mg tablet 81 mg PO DAILY 09/20/21 09/14/23 finasteride 5 mg tablet 5 mg PO DAILY 09/20/21 09/14/23 duloxetine 30 mg capsule,delayed 30 mg PO DAILY 01/10/22 09/14/23 release furosemide 20 mg tablet 20 mg PO DAILY 01/10/22 09/14/23 ergocalciferol (vitamin D2) 1,250 1,250 mcg PO MONTHLY 09/14/23 09/14/23 mcg (50,000 unit) capsule <Angela Aviles PA-C - Last Filed: 09/17/23 18:17> Allergies/Adverse reactions: Allergies Allergy/AdvReac Type Severity Reaction Status Date / Time Penicillins Allergy Unknown Verified 09/14/23 18:42 <Angela Aviles PA-C - Last Filed: 09/17/23 18:17> Review of Systems Review of Systems: CONSTITUTIONAL: Denies fever, chills EYES: Denies visual changes, redness, or discharge. ENT: Denies rhinorrhea, congestion, sore throat, or otalgia. CARDIOVASCULAR: Denies chest pain, palpitations, or edema. RESPIRATORY: See HPI GASTROINTESTINAL: Denies abdominal pain, nausea, vomiting, or diarrhea. GENITOURINARY: Denies dysuria or hematuria. SKIN: Denies rash or itching. MUSCULOSKELETAL: Denies back pain, joint pain, or myalgia. NEUROLOGIC: See HPI PSYCHIATRIC: Denies anxiety or depression. <Angela Aviles PA-C - Last Filed: 09/17/23 18:17> [facility] [place] Past Medical History Medical History: Medical History Congestive heart failure H/O gastroesophageal reflux (GERD) High cholesterol Hypertension <Angela Aviles PA-C - Last Filed: 09/17/23 18:17> Social History Social History: Social History Smoking status: Never smoker <Angela Aviles PA-C - Last Filed: 09/17/23 18:17>
[2023-09-17 16:43] LABS: Glucose Point of Care 128 mg/dl (65-105)
[2023-09-17] MEDS: SODIUM CHLORIDE 0.9% IV 1,000 ML 999 ML IV CONT (16:43)
[2023-09-17 16:50] LABS: Basophils Percent Auto 0.5 % (0.2-1.2); Eosinophils Absolute Auto 0.2 K/mm3 (0-0.3); Hematocrit 41.3 % (42.0-52.0); Hemoglobin 12.9 g/dL (14.0-18.0); Immature Granulocyte Absolute 0.01 K/mm3 (0.00-0.031); Immature Granulocyte Percent A 0.2 % (0-0.5); Lymphocytes Absolute Auto 2.22 K/mm3 (0.9-3.2); Lymphocytes Percent Auto 35.4 % (18.3-44.2); Mean Corpuscular HGB Conc 31.2 g/dl (32-36); Mean Corpuscular Hemoglobin 29.7 pg (26-34); Mean Corpuscular Volume 95.2 fl (80-100); Mean Platelet Volume 9.8 fl (7.4-10.4); Monocytes Absolute Auto 0.6 K/mm3 (0.1-0.6); Monocytes Percent Auto 10.2 % (2.6-8.5); Neutrophils Absolute Auto 3.2 K/mm3 (1.3-6.7); Neutrophils Percent Auto 50.7 % (45.5-73.1); Platelet Count Result 148 k/mm3 (150-375); Red Blood Count 4.34 M/mm3 (4.6-6.20); Red Cell Distribution Width 14.7 % (11.5-14.5); White Blood Count 6.3 K/mm3 (4.5-10.0)
[2023-09-17 17:06] LABS: INR 1.1; Prothrombin Time 14.2 Seconds (11.1-14.7)
[2023-09-17 17:07] LABS: Acetaminophen < 10 ug/mL (10-30); Alanine Aminotransferase 13 U/L (6-50); Albumin Level 3.7 g/dL (3.5-5.1); Alkaline Phosphatase 78 U/L (38-126); Anion Gap 3 mmol/L (8-16); Aspartate Amino Transferase 19 U/L (17-59); Bilirubin,Total 0.5 mg/dL (0.2-1.3); Blood Urea Nitrogen 35 mg/dL (9-20); Calcium 9.4 mg/dL (8.4-10.2); Carbon Dioxide 33 mmol/L (22-30); Chloride 100 mmol/L (98-107); Creatine Kinase 51 U/L (55-170); Estimated Glomerular Filt Rate 52; Ethanol < 10 mg/dL (<10); Glucose 136 mg/dL (65-110); Lactic Acid Reflex 1.4 mmol/L (0.7-2.0); Partial Thromboplastin Time 33.2 SECONDS (22.3-36.8); Potassium 3.6 mmol/L (3.4-5.0); Salicylate < 1.0 mg/dL (2-20); Sodium 136 mmol/L (137-145)
[2023-09-17 17:09] LABS: Appearance Urine Clear (Clear); Bilirubin Urine Negative (Negative); Blood Urine Negative (Negative); Color Urine Yellow (Yellow); Glucose Urine UA Negative (Negative); Ketones Urine Negative (Negative); Leukocyte Esterase Ur Negative LEU/UL (Negative); Nitrate Urine Negative (Negative); Protein Urine Negative (Negative); Specific Grav Ur 1.017 (1.001-1.035)
[2023-09-17 17:19] LABS: Troponin I < 0.012 ng/mL (0.000-0.034)
[2023-09-17 17:25] LABS: Amphetamine Screen Urine Negative (Negative); Barbiturate Screen Urine Negative (Negative); Benzodiazepines Screen Urine Negative (Negative); Cannabinoid Screen Urine Negative (Negative); Cocaine Screen Urine Negative (Negative); Methadone Screen Urine Negative (Negative); Opiate Screen Urine Negative (Negative); Phencyclidine Screen Urine Negative (Negative)
[2023-09-17 17:42] LABS: Add Urine Microscopic? NO
[2023-09-17 17:48] LABS: Influenza A QL RT-PCR Negative (Negative); Influenza B QL RT-PCR Negative (Negative); SARS-CoV-2 RNA PCR Negative (Negative)
--- NOTE | 2023-09-17 18:07 | PC.NURSE ---
Crisis called to evaluate patient
== END 2023-09-17 21:28 | disposition home or self-care (01) ==
PROVIDERS: Preventive Medicine Aerospace Medicine; Emergency Provider Physician Assistant; PCP Internal Medicine
DX: R41.82 Altered mental status, unspecified (principal); I11.0 Hypertensive heart disease with heart failure; I50.9 Heart failure, unspecified; E78.5 Hyperlipidemia, unspecified; Z20.822 Contact with and (suspected) exposure to COVID-19; Z79.899 Other long term (current) drug therapy
CPT/HCPCS: 36415; 70450; 71046; 80053; 80307; 81003; 82550; 82948; 83605; 84443; 84484; 85025; 85610; 85730; 87636; 93005; 96360; 99284; J7030

== ENCOUNTER → 2023-09-27 13:13 | Outpatient (CLI) | payer MEDICARE, SELFPAY ==
--- NOTE | ~2023-09-27 | US_ITS ---
EXAMINATION: US pelvic limited INDICATION: Benign prostatic hyperplasia without urinary tract symptoms TECHNIQUE: Limited ultrasound of the urinary bladder is obtained. COMPARISON: None available FINDINGS: There is minimal wall thickening of the urinary bladder. Prevoid bladder volume is 120 cc. Postvoid volume is 129 cc. IMPRESSION: 1. Urinary retention. 2. Wall thickening of the urinary bladder which could reflect cystitis versus chronic outlet obstruct ion. Reviewed, dictated and finalized at location B. K TRADER IMPRESSION: 1. Urinary retention. 2. Wall thickening of the urinary bladder which could reflect cystitis versus c hronic outlet obstruction.
--- NOTE | ~2023-09-27 | US_ITS ---
EXAMINATION: US scrotum doppler DATE: 09/27/2023 14:13 INDICATION: Other specified disorders of the male genital organs TECHNIQUE: Testicular sonogram utilizing grayscale and Doppler COMPARISON: None. FINDINGS: The right testis measures 4.5 x 2.1 x 2.8 cm. The left testis measures 4.2 x 2.8 x 2.5 cm. There is normal vascular flow to both testes. The right epididymis is normal with normal vascular boubacar w. The left epididymis is normal with normal vascular flow. There is a moderate to severe left hydroc elver. IMPRESSION: 1. Moderate to severe left hydrocele. Reviewed, dictated and finalized at location B. ERN LEASE INSPECTOR
== END ==
PROVIDERS: PCP Internal Medicine; Visit Provider Internal Medicine
DX: N50.89 Other specified disorders of the male genital organs (principal); N40.0 Benign prostatic hyperplasia without lower urinary tract symptoms; N43.3 Hydrocele, unspecified; R33.9 Retention of urine, unspecified
CPT/HCPCS: 76857; 76870; 93976

== ENCOUNTER 2025-02-11 13:28 | Outpatient (CLI) | payer MEDICARE, SELFPAY ==
--- NOTE | ~2025-02-11 | XR_ITS ---
XR shoulder RT min 2V Ordering provider: Una Martinez, History: . Bilateral shoulder joint pain . Comparison: None. FINDINGS: BONES: No acute fracture or dislocation. JOINT SPACES: The acromioclavicular joint is normal. The glenohumeral joint shows severe osteoarthrit ic changes. 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 Bowel is seen under the right hemidiaphragm. IMPRESSION: No acute osseous abnormality right shoulder. Severe osteoarthritic changes. Reviewed, dictated and finalized at location A.
--- NOTE | ~2025-02-11 | XR_ITS ---
XR shoulder LT min 2V Ordering provider: Uan Martinez, History: . Bilateral shoulder joint pain . Comparison: None. FINDINGS: BONES: No acute fracture or dislocation. JOINT SPACES: The acromioclavicular joint shows mild osteoarthritic changes. The glenohumeral joint shows severe osteoarthritic changes SOFT TISSUES: Normal. IMPRESSION: No acute osseous abnormality left shoulder. 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 Reviewed, dictated and finalized at location A.
== END 2025-02-11 13:29 | disposition home or self-care (01) ==
PROVIDERS: PCP Internal Medicine; Visit Provider Internal Medicine
DX: M19.011 Primary osteoarthritis, right shoulder (principal); M19.012 Primary osteoarthritis, left shoulder
CPT/HCPCS: 73030